=== PATIENT | female | born 1995 | race Caucasian/White ===

== ENCOUNTER 2017-03-15 09:17 | Inpatient (IN) | payer BC, OTHER ==
[~2017-03-15] VITALS: Ht 154.9 cm; Wt 69.5 kg
[2017-03-15] MEDS ORDERED: SODIUM CHLORIDE 0.9% 500 ML IVB ONE (10:14)
[2017-03-15] MEDS ORDERED: PANTOPRAZOLE 40 MG/10 ML VIAL IV STA (10:14)
[2017-03-15 11:03] LABS: Basophils # (auto) 0 uL; Basophils % (auto) 0.4 % (0.0-2.0); Eosinophils # (auto) 0 uL; Eosinophils % (auto) 0.3 % (0.0-7.0); Hematocrit 39.5 % (36.0-46.0); Hemoglobin 13.5 g/dL (12.2-16.2); Lymphocytes # (auto) 1.3 uL; Lymphocytes % (auto) 14.3 % (10.0-50.0); Mean Corpuscular Hemoglobin 30.8 pg (28.0-32.0); Mean Corpuscular Hgb Conc. 34.2 g/dL (32.0-36.0); Mean Corpuscular Volume 90.1 fL (80.0-100.0); Mean Platelet Volume 8.9 fL (6.9-10.8); Monocytes # (auto) 0.5 uL; Monocytes % (auto) 5.1 % (0.0-12.0); Neutrophils # (auto) 7.1 uL; Neutrophils % (auto) 79.9 % (37.0-80.0); Nucleated Red Blood Cells % 0.1 %; Platelet Count (auto) 262 10^3/uL (140-450); Red Cell Distribution Width 12.5 % (11.8-14.3); White Blood Cell 8.9 10^3/uL (4.4-10.8)
[2017-03-15] MEDS ORDERED: PROMETHAZINE HCL 25 MG/ML 1ML IV PRN (11:30)
[2017-03-15] MEDS ORDERED: cefTRIAXone 1GM/50ML D5W 50 ML IV ONE (11:30)
[2017-03-15] MEDS: FAMOTIDINE (10MG/ML) 2ML VL IV SCH ×2 (11:42→23:34)
[2017-03-15] MEDS: SODIUM CHLORIDE 0.9% 1,000 ML IV SCH ×2 (11:42→21:23)
[2017-03-15 11:49] LABS: BUN/Creatinine Ratio 12.5
[2017-03-15 11:50] LABS: Albumin 3.8 g/dL (3.4-5.0); Bilirubin, Total 0.2 mg/dL (0.2-1.0); Calcium 8.6 mg/dL (8.5-10.1)
[2017-03-15 11:59] LABS: Urine Bilirubin Negative (Negative); Urine Blood Negative /uL (Negative); Urine Color Yellow (Yellow); Urine Glucose Normal (Normal); Urine Ketone Negative (Negative); Urine Nitrite Negative (Negative); Urine RBC <1 /hpf (0 - 4); Urine Squamous Epithelial Cell FEW /hpf (<5); Urine Urobilinogen Normal (Negative)
[2017-03-15] MEDS ORDERED: MORPHINE SULF INJ 2 MG/ML SYRINGE 1ML ONE (13:58)
[2017-03-15] MEDS: metroNIDAZOLE 500MG/100ML 100 ML IV SCH ×3 (14:58→23:34)
[2017-03-15] MEDS: MORPHINE SULF INJ 2 MG/ML SYRINGE 1ML IV PRN (18:20)
[2017-03-15] MEDS ORDERED: NORE7TAB OR (19:05)
[2017-03-15 20:00] VITALS: BP 111/65
[2017-03-15] MEDS: LORazepam 2MG/ML-1ML VIAL IV PRN (20:15)
[2017-03-15 22:00] VITALS: BP 111/65
[2017-03-16] VITALS (7 sets, daily range): BP systolic 109–138; BP diastolic 63–89
[2017-03-16] MEDS: metroNIDAZOLE 500MG/100ML 100 ML IV SCH ×4 (05:43→23:49)
[2017-03-16 06:24] LABS: Basophils # (auto) 0.1 uL; Basophils % (auto) 0.7 % (0.0-2.0); Eosinophils # (auto) 0.1 uL; Eosinophils % (auto) 0.9 % (0.0-7.0); Hematocrit 34.9 % (36.0-46.0); Lymphocytes % (auto) 27.2 % (10.0-50.0); Mean Corpuscular Hemoglobin 31.3 pg (28.0-32.0); Mean Corpuscular Hgb Conc. 34.5 g/dL (32.0-36.0); Mean Corpuscular Volume 90.6 fL (80.0-100.0); Mean Platelet Volume 9.1 fL (6.9-10.8); Monocytes # (auto) 0.5 uL; Monocytes % (auto) 6.7 % (0.0-12.0); Neutrophils # (auto) 4.7 uL; Neutrophils % (auto) 64.5 % (37.0-80.0); Nucleated Red Blood Cells % 0.1 %; Platelet Count (auto) 204 10^3/uL (140-450); Red Cell Distribution Width 12.7 % (11.8-14.3); White Blood Cell 7.3 10^3/uL (4.4-10.8)
[2017-03-16 06:42] LABS: Albumin 3.1 g/dL (3.4-5.0); BUN/Creatinine Ratio 11.3; Bilirubin, Total 0.3 mg/dL (0.2-1.0); Calcium 7.8 mg/dL (8.5-10.1); Potassium 3.6 mmol/L (3.5-5.1); Total Protein 6.9 g/dL (6.4-8.2)
[2017-03-16] MEDS: SODIUM CHLORIDE 0.9% 1,000 ML IV SCH ×2 (07:23→17:23)
[2017-03-16] MEDS: cefTRIAXone 1GM/50ML D5W 50 ML IV SCH (08:41)
[2017-03-16 09:47] LABS: INR 0.96 (0.9-1.15); Partial Thromboplastin Time 27.8 sec (22.64-33.71); Prothrombin Time 10.5 sec (9.37-12.3)
[2017-03-16] MEDS ORDERED: fentaNYL CITRATE 100 MCG/2 ML VL ONE (10:00)
[2017-03-16] MEDS ORDERED: MIDAZOLAM HCL 1MG/1ML-2 ML VIAL ONE (10:00)
[2017-03-16] MEDS ORDERED: PROPOFOL 10 MG/ML 20 ML IV ONE (10:00)
[2017-03-16] MEDS ORDERED: ROCURONIUM 10MG/ML 10ML VIAL IV ONE (10:01)
[2017-03-16] MEDS ORDERED: ONDANSETRON HCL 4 MG/2 ML VIAL ONE (11:08)
[2017-03-16] MEDS ORDERED: ONDANSETRON HCL 4 MG/2 ML VIAL IV ONE (11:15)
[2017-03-16] MEDS ORDERED: hydrALAZINE HCL 20 MG/ML VL IV PRN (11:15)
[2017-03-16] MEDS ORDERED: ePHEDrine SULFATE 50 MG/ML AMP IV PRN (11:15)
[2017-03-16] MEDS: HYDROmorphone HCL 2 MG/ML VL IV PRN ×2 (11:28→11:38)
[2017-03-16] MEDS: FAMOTIDINE (10MG/ML) 2ML VL IV SCH ×2 (13:06→23:48)
[2017-03-16] MEDS: MORPHINE SULF INJ 2 MG/ML SYRINGE 1ML IV PRN ×2 (14:21→18:22)
[2017-03-16] MEDS: LORazepam 2MG/ML-1ML VIAL IV PRN ×2 (15:09→21:34)
[2017-03-17] MEDS: MORPHINE SULF INJ 2 MG/ML SYRINGE 1ML IV PRN ×5 (01:27→23:43)
[2017-03-17] MEDS: SODIUM CHLORIDE 0.9% 1,000 ML IV SCH ×2 (03:15→13:02)
[2017-03-17 05:00] VITALS: BP 113/70
[2017-03-17] MEDS: metroNIDAZOLE 500MG/100ML 100 ML IV SCH ×4 (05:52→23:59)
[2017-03-17] MEDS: cefTRIAXone 1GM/50ML D5W 50 ML IV SCH (08:55)
[2017-03-17 09:00] VITALS: BP 116/78
[2017-03-17 09:22] LABS: Basophils # (auto) 0.1 uL; Basophils % (auto) 0.7 % (0.0-2.0); Eosinophils # (auto) 0 uL; Hematocrit 34.2 % (36.0-46.0); Hemoglobin 11.6 g/dL (12.2-16.2); Lymphocytes # (auto) 1.6 uL; Lymphocytes % (auto) 16.1 % (10.0-50.0); Mean Corpuscular Hemoglobin 30.8 pg (28.0-32.0); Mean Corpuscular Volume 90.4 fL (80.0-100.0); Mean Platelet Volume 8.7 fL (6.9-10.8); Monocytes # (auto) 0.8 uL; Monocytes % (auto) 8.5 % (0.0-12.0); Neutrophils # (auto) 7.2 uL; Neutrophils % (auto) 74.7 % (37.0-80.0); Platelet Count (auto) 225 10^3/uL (140-450); Red Cell Distribution Width 12.6 % (11.8-14.3); White Blood Cell 9.7 10^3/uL (4.4-10.8)
[2017-03-17 09:46] LABS: Albumin 3.1 g/dL (3.4-5.0); Bilirubin, Total 0.3 mg/dL (0.2-1.0); Potassium 3.8 mmol/L (3.5-5.1); Total Protein 6.9 g/dL (6.4-8.2)
[2017-03-17] MEDS: FAMOTIDINE (10MG/ML) 2ML VL IV SCH ×2 (11:26→23:43)
[2017-03-17 13:00] VITALS: BP 128/78
[2017-03-17 17:00] VITALS: BP 114/71
[2017-03-17 22:00] VITALS: BP 122/79
[2017-03-18] MEDS: SODIUM CHLORIDE 0.9% 1,000 ML IV SCH ×3 (03:16→23:04)
[2017-03-18] MEDS: LORazepam 2MG/ML-1ML VIAL IV PRN (04:38)
[2017-03-18 05:00] VITALS: BP 118/77
[2017-03-18] MEDS: metroNIDAZOLE 500MG/100ML 100 ML IV SCH ×2 (05:17→11:24)
[2017-03-18 06:32] LABS: Basophils # (auto) 0 uL; Basophils % (auto) 0.4 % (0.0-2.0); Eosinophils # (auto) 0 uL; Eosinophils % (auto) 0.2 % (0.0-7.0); Hematocrit 30.7 % (36.0-46.0); Hemoglobin 10.7 g/dL (12.2-16.2); Lymphocytes # (auto) 1.9 uL; Lymphocytes % (auto) 25.8 % (10.0-50.0); Mean Corpuscular Hemoglobin 31.4 pg (28.0-32.0); Mean Corpuscular Hgb Conc. 34.8 g/dL (32.0-36.0); Mean Corpuscular Volume 90.2 fL (80.0-100.0); Mean Platelet Volume 8.8 fL (6.9-10.8); Monocytes # (auto) 0.7 uL; Monocytes % (auto) 9.9 % (0.0-12.0); Neutrophils # (auto) 4.6 uL; Neutrophils % (auto) 63.7 % (37.0-80.0); Platelet Count (auto) 183 10^3/uL (140-450); Red Cell Distribution Width 12.8 % (11.8-14.3); White Blood Cell 7.3 10^3/uL (4.4-10.8)
[2017-03-18 06:47] LABS: Potassium 3.6 mmol/L (3.5-5.1)
[2017-03-18 06:51] LABS: Albumin 2.8 g/dL (3.4-5.0); BUN/Creatinine Ratio 9.2; Calcium 7.9 mg/dL (8.5-10.1)
[2017-03-18 06:53] LABS: Bilirubin, Total 0.2 mg/dL (0.2-1.0); Total Protein 6.1 g/dL (6.4-8.2)
[2017-03-18 09:00] VITALS: BP 129/66
[2017-03-18] MEDS: cefTRIAXone 1GM/50ML D5W 50 ML IV SCH (09:33)
[2017-03-18] MEDS: MORPHINE SULF INJ 2 MG/ML SYRINGE 1ML IV PRN ×2 (09:49→16:59)
[2017-03-18] MEDS: FAMOTIDINE (10MG/ML) 2ML VL IV SCH ×2 (11:23→23:04)
[2017-03-18 13:00] VITALS: BP 118/78
[2017-03-18] MEDS ORDERED: HYDROXYCHLOROQUINE SULFATE 200 MG TAB PO ONE (14:00)
[2017-03-18 17:00] VITALS: BP 113/80
[2017-03-18] MEDS: HYDROXYCHLOROQUINE SULFATE 200 MG TAB PO SCH (23:04)
[2017-03-19] MEDS: SODIUM CHLORIDE 0.9% 1,000 ML IV SCH (05:23)
[2017-03-19 05:32] VITALS: BP 116/76
[2017-03-19 08:00] VITALS: BP 117/76
[2017-03-19 09:00] VITALS: BP 117/76
[2017-03-19] MEDS: FAMOTIDINE (10MG/ML) 2ML VL IV SCH (10:04)
[2017-03-19] MEDS: HYDROXYCHLOROQUINE SULFATE 200 MG TAB PO SCH (10:04)
[2017-03-19] MEDS: MORPHINE SULF INJ 2 MG/ML SYRINGE 1ML IV PRN (10:16)
[2017-03-19 12:31] VITALS: BP 117/76
== END 2017-03-19 13:06 | disposition home or self-care (01) | DRG 418 ==
LOC: ER 09:17 → OVERFLOW 09:18 → EAST 17:41
PROVIDERS: ADMIT Internal Medicine; ATTEND Internal Medicine Pulmonary Disease
PROC: 0FT44ZZ Resection of Gallbladder, Percutaneous Endoscopic Approach (ICD-10-PCS; principal; 2017-03-16 10:01)
DX: K80.00 Calculus of gallbladder with acute cholecystitis without obstruction (principal); E44.0 Moderate protein-calorie malnutrition; M32.9 Systemic lupus erythematosus, unspecified; Z68.29 Body mass index [BMI] 29.0-29.9, adult
CPT/HCPCS: 36415; 76705; 78226; 80053; 80061; 80307; 81001; 82150; 83690; 84702; 85025; 85610; 85730; 86160; 94761; 96361; 96365; 96375; C9113; J0696; J2250; J2405; J2704; J3490